=== PATIENT | female | born 1950 | race Caucasian/White ===

== ENCOUNTER 2018-08-21 18:13 | Inpatient (IN) ==
--- NOTE | 2018-08-21 18:26 | Emergency Department Note ---
Disposition Clinical Impression: Stroke Disposition: Admitted As Inpatient Condition: Fair General Adult HPI - General Chief complaint: ED Neuro Symptoms/Deficit Stated complaint: Poss stroke Time Seen by Provider: 08/21/18 18:14 Source: patient, family, EMS Limitations: no limitations - History of Present Illness Pain Scale: 0 - Related Data Home Medications Medication Instructions Recorded Confirmed Aspirin 325 mg PO DAILY 08/21/18 08/21/18 Allergies Allergy/AdvReac Type Severity Reaction Status Date / Time No Known Allergies Allergy Verified 08/21/18 20:28 Past Medical History - Past Medical History Medical history: Reports: other Psychiatric history: Reports: no psych history - Social History Smoking Status: Former smoker Smokeless Tobacco Status: No Alcohol use: Reports: none Drug use: Reports: none Physical Exam - General Limitations: no limitations General appearance: alert, in no apparent distress Course Vital Signs Temperature 98.9 F 08/21/18 18:17 Pulse Rate 73 08/21/18 18:17 Respiratory Rate 18 08/21/18 18:17 Blood Pressure 175/142 08/21/18 18:17 O2 Sat by Pulse Oximetry 97 08/21/18 18:17 Temperature 98.9 F 08/21/18 18:17 Pulse Rate 73 08/21/18 18:17 Respiratory Rate 18 08/21/18 18:17 Blood Pressure 175/142 08/21/18 18:17 O2 Sat by Pulse Oximetry 97 08/21/18 18:17 Oxygen Delivery Oxygen Delivery Room Air Medical Decision Making - Lab Data Result diagrams: 08/21/18 18:31 08/21/18 18:31 Lab Results 08/21/18 08/21/18 08/21/18 Range/Units 18:19 18:31 18:31 WBC 8.5 (4.3-11.1) K/mcL RBC 5.18 H (3.82-4.97) M/mcL Hgb 16.7 H (11.5-15.4) g/dL Hct 50.7 H (35.3-44.9) % MCV 97.9 (83.0-100.0) fL MCH 32.2 (28.0-33.3) pg MCHC 32.9 (31.6-35.5) g/dL RDW 12.9 (11.5-14.5) % Plt Count 196 (140-400) K/mcL MPV 9.8 (9.4-12.4) fL PT 11.1 (9.4-12.1) Seconds INR 1.0 APTT 28.1 (26.0-36.0) Seconds Sodium (136-145) mEq/L Potassium (3.5-5.1) mEq/L Chloride (98-107) mEq/L Carbon Dioxide (23-29) mEq/L BUN (8-23) mg/dL Creatinine (0.60-1.20) mg/dL Est GFR ( Amer) (> 60) Est GFR (Non-Af Amer) (> 60) BUN/Creatinine Ratio (6-26) Glucose (70-105) mg/dL POC Glucose 188 H (70-99) mg/dL Calculated Osmolality (280-300) Calcium (8.6-10.3) mg/dL Troponin I (< 0.04) ng/mL 08/21/18 Range/Units 18:31 WBC (4.3-11.1) K/mcL RBC (3.82-4.97) M/mcL Hgb (11.5-15.4) g/dL Hct (35.3-44.9) % MCV (83.0-100.0) fL MCH (28.0-33.3) pg MCHC (31.6-35.5) g/dL RDW (11.5-14.5) % Plt Count (140-400) K/mcL MPV (9.4-12.4) fL PT (9.4-12.1) Seconds INR APTT (26.0-36.0) Seconds Sodium 140 (136-145) mEq/L Potassium 3.2 L (3.5-5.1) mEq/L Chloride 102 (98-107) mEq/L Carbon Dioxide 27 (23-29) mEq/L BUN 14 (8-23) mg/dL Creatinine 0.67 (0.60-1.20) mg/dL Est GFR ( Amer) > 60 (> 60) Est GFR (Non-Af Amer) > 60 (> 60) BUN/Creatinine Ratio 21 (6-26) Glucose 192 H (70-105) mg/dL POC Glucose (70-99) mg/dL Calculated Osmolality 296 (280-300) Calcium 9.2 (8.6-10.3) mg/dL Troponin I 0.03 (< 0.04) ng/mL Critical Care Time Critical Care Time: Yes Total Critical Care Time: 35 Attestation: Critical care performed: Time is exclusive of separately billable procedures. Time includes: direct patient care, patient reassessment, coordination of patient care, interpretation of data (laboratory data, radiology data, and respiratory data), review of patient's medical records, medical consultation and documentation of patient care. Procedures included in critical care time: Procedures excluded from critical care time: Attestation Statement - Attestation Attestation: I examined this patient and my medical decision-making was reviewed with the Resident Physician. I agree with the documented findings, disposition and treatment plan as described except to the extent set forth below. Patient presents to the ED with a chief complaint of left-sided weakness. Onset 3 days ago. Weakness in her left leg. She is following. Left arm weakness as well. Left facial droop. On examination her left leg just the bed. She has a sensory discrepancy. Left arm drifts as well. Obvious droop of the left side of the mouth. Plan. Patient appears of the stroke. Onset 3 days ago. Stroke workup and admission. CT does not show anything acute. She is admitted for further stroke workup. Patient does not meet TPA criteria secondary to her symptoms starting over [address] 08/21/18 18:22 IMPRESSION: Atrophy and moderate small vessel ischemic disease. If there is strong clinical concern for acute on chronic ischemia, consider MRKarri Yadav/ / Dick Kearns MD / Dick Kearns MD Interpreting Provider: Dick Kearns MD
--- NOTE | 2018-08-21 18:27 | Emergency Department Note ---
Disposition Clinical Impression: Stroke Qualifiers: CVA mechanism: unspecified Qualified Code(s): I63.9 - Cerebral infarction, unspecified Disposition: Admitted As Inpatient Condition: Fair Time of Disposition: 20:25 General Adult HPI - General Chief complaint: ED Neuro Symptoms/Deficit Stated complaint: Poss stroke Time Seen by Provider: 08/21/18 18:14 Source: patient, family, EMS Mode of arrival: EMS Limitations: physical limitation Nursing Notes Reviewed: Yes Vital Signs Reviewed: Yes - History of Present Illness HPI Narrative: 68-year-old female presenting to the emergency department chief complaint left sided weakness. Patient states approximately 3 days ago she started having trouble walking on her left leg. She states it felt weak and heavy. She also states that she has had sensation abnormalities in left upper extremity and left lower extremity. She also noticed a left facial droop. She was concerned she was having a stroke but did not want to be evaluated. She keeps having falls at home and therefore her believed it was time to get evaluated by EMS. Patient denies any history of stroke. Does not use any anticoagulation. She does take aspirin at home. Pain Scale: 0 - Related Data Allergies Allergy/AdvReac Type Severity Reaction Status Date / Time No Known Allergies Allergy Verified 08/21/18 20:28 All systems ED: reviewed and negative except as stated. Cardiovascular: Denies: chest pain Respiratory: Denies: dyspnea Gastrointestinal: Denies: abdominal pain Past Medical History - Past Medical History Attestation: Yes The following information was validated with the patient. Source: patient Medical history: Reports: other Psychiatric history: Reports: no psych history - Social History Smoking Status: Former smoker Smokeless Tobacco Status: No Alcohol use: Reports: none Drug use: Reports: none Physical Exam - General Limitations: no limitations General appearance: alert, in no apparent distress - Head Head exam: atraumatic, normocephalic, normal inspection - Eye Eye exam: Absent: scleral icterus - ENT ENT exam: mucous membranes moist - Neck Neck exam: Present: full ROM - Chest Chest inspection: Present: symmetric chest wall rise - Respiratory Respiratory exam: Present: normal lung sounds bilaterally. Absent: respiratory distress, wheezes - Cardiovascular Cardiovascular exam: Present: regular rate, normal rhythm, normal heart sounds - Abdominal Exam Abdominal exam: Present: soft, Non-Tender. Absent: distention, guarding, rebound - Extremities Exam Extremities exam: Present: normal inspection - Neurological Exam Neurological exam: Present: alert, oriented X3, other (Please refer to NIH stroke scale for further neurological examination) - Psychiatric Psychiatric exam: Present: normal affect - Skin Skin exam: Present: warm Course Course Narrative: 68-year-old female presenting to the emergency department chief complaint left- sided weakness. In the room she is alert and oriented 3 and hemodynamically stable. Physical exam is significant for what looks like a stroke. Patient has left upper and lower extremity weakness with sensation abnormalities. NIH score 8. Patient has had symptoms for 3 days therefore is out of the window for TPA or other intervention at this time. We will perform basic laboratory analysis along with CT of the head. Disposition most likely admission versus transfer. Pending further evaluation. Patient agrees with this plan. - Reevaluation(s) Reevaluation #1: Patient's laboratory analysis shows hypokalemia at 3.2. CT does not show any acute intracranial hemorrhage. At this time will plan to admit the patient for stroke workup. Patient remains alert and oriented 3 and hemodynamically stable. Patient agrees with this plan. I spoke with the hospitalist destination specialist Dr. Wheatley who agrees to accept the patient at this time. Vital Signs Temperature 98.9 F 08/21/18 18:17 Pulse Rate 73 08/21/18 18:17 Respiratory Rate 18 08/21/18 18:17 Blood Pressure 175/142 08/21/18 18:17 O2 Sat by Pulse Oximetry 97 08/21/18 18:17 Temperature 98.9 F 08/21/18 18:17 Pulse Rate 73 08/21/18 18:17 Respiratory Rate 18 08/21/18 18:17 Blood Pressure 175/142 08/21/18 18:17 O2 Sat by Pulse Oximetry 97 08/21/18 18:17 Oxygen Delivery Oxygen Delivery Room Air Medical Decision Making - Lab Data Result diagrams: 08/21/18 18:31 08/21/18 18:31 Lab Results 08/21/18 08/21/18 08/21/18 Range/Units 18:19 18:31 18:31 WBC 8.5 (4.3-11.1) K/mcL RBC 5.18 H (3.82-4.97) M/mcL Hgb 16.7 H (11.5-15.4) g/dL Hct 50.7 H (35.3-44.9) % MCV 97.9 (83.0-100.0) fL MCH 32.2 (28.0-33.3) pg MCHC 32.9 (31.6-35.5) g/dL RDW 12.9 (11.5-14.5) % Plt Count 196 (140-400) K/mcL MPV 9.8 (9.4-12.4) fL PT 11.1 (9.4-12.1) Seconds INR 1.0 APTT 28.1 (26.0-36.0) Seconds Sodium (136-145) mEq/L Potassium (3.5-5.1) mEq/L Chloride (98-107) mEq/L Carbon Dioxide (23-29) mEq/L BUN (8-23) mg/dL Creatinine (0.60-1.20) mg/dL Est GFR ( Amer) (> 60) Est GFR (Non-Af Amer) (> 60) BUN/Creatinine Ratio (6-26) Glucose (70-105) mg/dL POC Glucose 188 H (70-99) mg/dL Calculated Osmolality (280-300) Calcium (8.6-10.3) mg/dL Troponin I (< 0.04) ng/mL 08/21/18 Range/Units 18:31 WBC (4.3-11.1) K/mcL RBC (3.82-4.97) M/mcL Hgb (11.5-15.4) g/dL Hct (35.3-44.9) % MCV (83.0-100.0) fL MCH (28.0-33.3) pg MCHC (31.6-35.5) g/dL RDW (11.5-14.5) % Plt Count (140-400) K/mcL MPV (9.4-12.4) fL PT (9.4-12.1) Seconds INR APTT (26.0-36.0) Seconds Sodium 140 (136-145) mEq/L Potassium 3.2 L (3.5-5.1) mEq/L Chloride 102 (98-107) mEq/L Carbon Dioxide 27 (23-29) mEq/L BUN 14 (8-23) mg/dL Creatinine 0.67 (0.60-1.20) mg/dL Est GFR ( Amer) > 60 (> 60) Est GFR (Non-Af Amer) > 60 (> 60) BUN/Creatinine Ratio 21 (6-26) Glucose 192 H (70-105) mg/dL POC Glucose (70-99) mg/dL Calculated Osmolality 296 (280-300) Calcium 9.2 (8.6-10.3) mg/dL Troponin I 0.03 (< 0.04) ng/mL - EKG Data EKG #1 EKG attestation: Yes I reviewed and interpreted this EKG. EKG results narrative: Atrial fibrillation. PVCs noted. 79 bpm. QRS 112, QTC 454. No sign of acute ST segment elevation or ischemia. NIH Stroke Scale - Level of Consciousness LOC: Alert - LOC Questions LOC Questions: Answers both correctly - LOC Commands LOC Commands: Performs both correctly - Best Gaze Best Gaze: Normal - Visual Visual: Partial hemianopia - Facial Palsy Facial Palsy: Partial, total, or near-total paralysis of lower face - Motor Arms Motor Arm-Left: Drift, does NOT hit bed Motor Arm-Right: No drift for 10 seconds - Motor Legs Motor Leg-Left: Some effort against gravity, limb drifts to bed Motor Leg-Right: No drift for 5 seconds - Limb Ataxia Limb Ataxia: Present in ONE limb - Sensory Sensory: Mild to moderate loss, "not as sharp" - Best Language Best Language: No aphasia - Dysarthria Dysarthria: Normal - Extinction and Inattention Extinction and Inattention: Normal - NIHSS Total Score NIHSS Total Score: 8
[2018-08-21 18:50] LABS: Hematocrit 50.7 % (35.3-44.9); Hemoglobin 16.7 g/dL (11.5-15.4); Mean Corpuscular HGB Conc 32.9 g/dL (31.6-35.5); Mean Corpuscular Hemoglobin 32.2 pg (28.0-33.3); Mean Corpuscular Volume 97.9 fL (83.0-100.0); Mean Platelet Volume 9.8 fL (9.4-12.4); Platelet Count 196 K/mcL (140-400); Red Blood Count 5.18 M/mcL (3.82-4.97); Red Cell Distribution Width 12.9 % (11.5-14.5)
[2018-08-21 19:10] LABS: Prothrombin Time 11.1 Seconds (9.4-12.1)
[2018-08-21 19:12] LABS: BUN/Creatinine Ratio 21 (6-26); Blood Urea Nitrogen 14 mg/dL (8-23); Calcium 9.2 mg/dL (8.6-10.3); Carbon Dioxide 27 mEq/L (23-29); Chloride 102 mEq/L (98-107); Glucose 192 mg/dL (70-105); Osmolality,Calculated 296 (280-300); Potassium 3.2 mEq/L (3.5-5.1); Sodium 140 mEq/L (136-145); Troponin I 0.03 ng/mL (< 0.04); eGFR For Non-African Americans > 60 (> 60)
[2018-08-21 19:13] LABS: Activated Partial Thrombo Time 28.1 Seconds (26.0-36.0)
[2018-08-21] MEDS ORDERED: Aspirin 325 MG TABLET PO ONE (20:26)
[2018-08-21] MEDS ORDERED: Naloxone 0.4 MG/ML INJ IVP PRN (23:42)
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
[2018-08-22] MEDS ORDERED: *HR* Labetalol 20 MG/4 ML SYRINGE IVP ONE (04:04)
[2018-08-22] MEDS ORDERED: *HR* Heparin 5,000 UNIT/ML VIAL IVP PRN ×2 (04:32)
[2018-08-22] MEDS ORDERED: *HR* Heparin 5,000 UNIT/ML VIAL IVP ONE (04:32)
[2018-08-22] MEDS ORDERED: Heparin 25,000 UNIT/250 ML D5W 25,000 UNIT/250 ML IV.SOLN IVC SCH (04:45)
[2018-08-22 05:12] LABS: Basophils # 0.1 K/mcL (0.0-0.2); Basophils % 0.9 %; Eosinophils # 0.1 K/mcL (0.0-0.6); Eosinophils % 1.7 %; Hematocrit 50.2 % (35.3-44.9); Hemoglobin 16.6 g/dL (11.5-15.4); Immature Granulocytes % 0.1 % (0-4); Lymphocytes # 0.9 K/mcL (0.6-4.6); Lymphocytes % 12.4 %; Mean Corpuscular HGB Conc 33.1 g/dL (31.6-35.5); Mean Corpuscular Hemoglobin 32.3 pg (28.0-33.3); Mean Corpuscular Volume 97.7 fL (83.0-100.0); Monocytes # 0.9 K/mcL (0.0-1.3); Monocytes % 12.7 %; Platelet Count 180 K/mcL (140-400); Red Blood Count 5.14 M/mcL (3.82-4.97); Segmented Neutrophils % 72.2 %
[2018-08-22 05:19] LABS: Heparin anti-factor XA UFH 0.04 IU/mL (0.30-0.70); Prothrombin Time 10.8 Seconds (9.4-12.1)
[2018-08-22 05:33] LABS: Alanine Aminotransferase 22 Units/L (7-52); Albumin 3.9 g/dL (3.5-5.7); Albumin/Globulin Ratio 1.4 (1.1-2.2); Alkaline Phosphatase 54 Units/L (34-104); Aspartate Amino Transferase 27 Units/L (13-39); BUN/Creatinine Ratio 21 (6-26); Bilirubin,Total 2.3 mg/dL (0.3-1.0); Blood Urea Nitrogen 14 mg/dL (8-23); Calcium 9.3 mg/dL (8.6-10.3); Carbon Dioxide 30 mEq/L (23-29); Chloride 100 mEq/L (98-107); Chol/HDL Ratio 2.7 (0-4.9); Cholesterol 169 mg/dL (< 200); Globulin 2.8 g/dL (2.4-3.5); Glucose 101 mg/dL (70-105); HDL Cholesterol 63 mg/dL (40-59); LDL Cholesterol,Calculated 92 mg/dL (0-99); Osmolality,Calculated 295 (280-300); Potassium 2.9 mEq/L (3.5-5.1); Sodium 142 mEq/L (136-145); Total Protein 6.7 g/dL (6.4-8.9); Triglycerides 71 mg/dL (< 150); eGFR For Non-African Americans > 60 (> 60)
[2018-08-22 10:17] LABS: Estimated Average Glucose 114 mg/dl; Hemoglobin A1C 5.6 %
--- NOTE | 2018-08-22 11:41 | Internal Med Progress Note ---
Hospitalist Progress Note - Encounter Date of Encounter: 08/22/18 Time of Encounter: 11:34 - Subjective Interval History: Patient is seen and examined in the room. Left-sided weakness and numbness remain the same. Patient has no headache, for seizure activity overnight. - Exam Vitals: Temp Pulse Resp BP Pulse Ox 98.4 F 62 13 179/87 97 08/22/18 08:37 08/22/18 08:37 08/22/18 08:37 08/22/18 08:37 08/22/18 08:37 Exam: General: Alert and oriented. Skin:Normal color, no rash, no lesions. HEENT:Pupils equal, round and reactive. Cardiovascular:Heart rhythm irregular, no rubs, murmurs or gallops. No JVD. Lungs:Breath sounds decreased, no wheezes or crackles. Abdomen:Soft, non-tender, no rigidity. Extremities:No deformity, no edema or tenderness, no joint swelling or clubbing. Neurological:Normal cognition. GCS 15. NIHSS 7 for left upper and lower extremity drift, limb ataxia, partial sensory loss, and partial facial paresis. Pulses:Carotid and radial pulses normal +2. Rest of the physical exam is non contributory. - Assessment and Plan (1) Stroke-like symptoms Current Visit: Yes Status: Acute Assessment and Plan: 08/21 Symptoms started Saturday. ER obtained Head CT showing atrophy and moderate small vessel ischemic disease, recommending MR if strong clinical concern for acute on chronic ischemia. MRI ordered. Echocardiogram ordered. Carotid dopplers ordered. PT, OT, ST consults ordered. Neuro checks. 08/22 MR of brain showed acute CVA in the MCA territory. Multiple chronic lacunar infarct involving caudae nucleus, internal capsule, and thalamus of right side also noted. Patient also was noted to have atrial fibrillation upon arrival to the ED. Patient denies history of atrial fibrillation. Echocardiogram showed preserved ejection fraction, no detectable PFO, no obvious valvular disease or intraventricular thrombosis. Undetermined etiology, patient likely also has underlying vascular arthrosclerosis given the moderate to severe chronic ischemic change revealed on MRI. Patient was on heparin drip for new onset of atrial fib, was started on Eliquis today with loading dose for 1 week. Continue home aspirin for now. Risk factor modification including blood pressure control, cholesterol, blood glucose control, and weight reduction. Neurology consult, appreciate help. (2) Atrial fibrillation Current Visit: Yes Status: Acute Assessment and Plan: 08/21 Patient denies any known history of atrial fibrillation. Rate currently controlled. Chadsvasc score of 4, heparin drip started. Continuous cardiac monitoring. 08/22 Rate controlled, adequately started. Echocardiogram reported a normal ejection fraction, no obvious valvular disease, no PFO, no intraventricular thrombosis. Patient currently not on any rate control agent, may start if indicated. (3) Hypokalemia Current Visit: Yes Status: Acute Assessment and Plan: Replacement ordered. Repeat labs ordered. (4) Hypertension Current Visit: Yes Status: Acute Assessment and Plan: Severe high blood pressure noted. Also has associated electrolytes abnormalities, raising the concern for secondary hypertension including Conn syndrome. We will start secondary hypertension workup, tests and imaging studies have already ordered. We will will aggressively manage the blood pressure after patient being evaluated by Neurology. DVT Prophylaxis: On Eliquis. - Time Spent with Patient Total time spent is greater than 50% in coordination of care (as documented) at patient's floor/unit and/or counseling patient: Greater than 35 minutes Plan of Care Discussed with: patient Internal Medicine: Result - Labs CBC & Chem 7: 08/22/18 04:47 08/22/18 04:47 Labs: Short CBC 08/21/18 08/22/18 Range/Units 18:31 04:47 WBC 8.5 6.9 (4.3-11.1) K/mcL Hgb 16.7 H 16.6 H (11.5-15.4) g/dL Hct 50.7 H 50.2 H (35.3-44.9) % Plt Count 196 180 (140-400) K/mcL Neutrophils # 5.0 (1.6-8.9) K/mcL BMP 08/21/18 08/22/18 18:31 04:47 Sodium 140 142 Potassium 3.2 L 2.9 L Chloride 102 100 Carbon Dioxide 27 30 H BUN 14 14 Creatinine 0.67 0.68 Glucose 192 H 101 Calcium 9.2 9.3 Cardiac Enzymes 08/21/18 Range/Units 18:31 Troponin I 0.03 (< 0.04) ng/mL Liver Function 08/22/18 Range/Units 04:47 Total Bilirubin 2.3 H (0.3-1.0) mg/dL AST 27 (13-39) Units/L ALT 22 (7-52) Units/L Alkaline Phosphatase 54 (34-104) Units/L Albumin 3.9 (3.5-5.7) g/dL - ABG Interpretation ABG results: PT/INR, D-dimer PT 10.8 Seconds (9.4-12.1) 08/22/18 04:47 - Impressions Impressions Head CT 08/21/18 18:22 IMPRESSION: Atrophy and moderate small vessel ischemic disease. If there is strong clinical concern for acute on chronic ischemia, consider MR. D/ / Dick Kearns MD / Dick Kearns MD Interpreting Provider: Dick Kearns MD Echocardiogram 08/22/18 01:05 Impressions: LVEF 55%. Mild concentric left ventricular hypertrophy. Indeterminate diastolic function. Mildly dilated left atrium. Normal right ventricular structure and function. Mild tricuspid regurgitation. No pulmonary hypertension. No evidence of PFO with agitated saline contrast. Left Ventricular Wall Motion: Rest Echo Findings All wall segments showed normal motion. Findings: Study Quality * Technically sub-optimal due to poor echocardiographic windows. ECG Findings * Atrial fibrillation. Left Ventricle * LVEF 55%. * Normal LV chamber size and systolic function. * Mild concentric left ventricular hypertrophy. * Indeterminate diastolic function. Right Ventricle * Normal right ventricular structure and function. Left Atrium * Mildly dilated left atrium. Right Atrium * Normal right atrial size. Interatrial Septum * No evidence of PFO with agitated saline contrast. Aortic Valve * Trileaflet aortic valve with normal function. * No aortic stenosis. * No aortic regurgitation. Mitral Valve * Normal mitral valve structure. * No mitral stenosis. * Trace mitral regurgitation. Tricuspid Valve * Normal tricuspid valve structure. * No tricuspid stenosis. * Mild tricuspid regurgitation. * Estimated RVSP is 25 mmHg. * Estimated RA pressure is 8 mmHg. * No pulmonary hypertension. Pulmonic Valve * Pulmonic valve is not well visualized. * No pulmonic stenosis. * No pulmonic regurgitation. Aorta * Normally sized aortic root. Pericardium * The pericardium appears normal. IVC * The IVC is dilated. * > 50% respiratory change Brain MRI 08/22/18 01:26 IMPRESSION: Patchy areas of acute infarctions in the right frontal and anterior right parietal lobes, in the right MCA territory. Small old lacunar infarcts in the right basal ganglia, right head of caudate nucleus, right thalamus and right frontal periventricular white matter. Mild parenchymal volume loss. Moderate to severe chronic microvascular disease. The results were reported to nurse Estefani at 10:19 a.m. on August 22, 2018. D/ / Mike Navas MD / Mike Navas MD Interpreting Provider: Mike Navas MD Consult Discharge Plan - Plan Referrals: Simon Jolley MD [Primary Care Provider] - (Web Requested) (2) Atrial fibrillation Qualifiers: Atrial fibrillation type: unspecified Qualified Code(s): I48.91 - Unspecified atrial fibrillation (4) Hypertension Qualifiers: Hypertension type: unspecified Qualified Code(s): I10 - Essential (primary) hypertension
[2018-08-22] MEDS ORDERED: Apixaban 5 MG TABLET PO SCH (11:45)
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
[2018-08-22] MEDS ORDERED: Isovue-370 500 ML BOTTLE IVP ONE (13:45)
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
[2018-08-22] MEDS: Metoprolol XL (24 HR) Succ 25 MG TAB.ER.24H PO SCH (16:23)
[2018-08-22] MEDS ORDERED: Warfarin perPT PO PRN (18:00)
[2018-08-22] MEDS ORDERED: *HR* Warfarin 5 MG TABLET PO ONE (18:00)
[2018-08-22 18:01] LABS: Thyroid Stimulating Hormone 1.55 mcIU/mL (0.340-5.600)
[2018-08-23 03:14] LABS: Hematocrit 48.8 % (35.3-44.9); Hemoglobin 16.4 g/dL (11.5-15.4); Mean Corpuscular HGB Conc 33.6 g/dL (31.6-35.5); Mean Corpuscular Hemoglobin 32.4 pg (28.0-33.3); Mean Corpuscular Volume 96.4 fL (83.0-100.0); Mean Platelet Volume 10.3 fL (9.4-12.4); Platelet Count 182 K/mcL (140-400); Red Blood Count 5.06 M/mcL (3.82-4.97)
[2018-08-23 03:22] LABS: INR 1.2
[2018-08-23 03:27] LABS: BUN/Creatinine Ratio 18 (6-26); Blood Urea Nitrogen 9 mg/dL (8-23); Calcium 8.8 mg/dL (8.6-10.3); Carbon Dioxide 29 mEq/L (23-29); Chloride 101 mEq/L (98-107); Glucose 100 mg/dL (70-105); Osmolality,Calculated 287 (280-300); Potassium 3.3 mEq/L (3.5-5.1); Sodium 139 mEq/L (136-145); eGFR For Non-African Americans > 60 (> 60)
[2018-08-23] MEDS: Metoprolol XL (24 HR) Succ 25 MG TAB.ER.24H PO SCH (09:31)
[2018-08-23] MEDS: Aspirin 81 MG TAB.CHEW PO SCH (09:31)
--- NOTE | 2018-08-23 11:19 | Internal Med Progress Note ---
Hospitalist Progress Note - Encounter Date of Encounter: 08/23/18 Time of Encounter: 11:18 - Subjective Interval History: Patient seen and examined in the room. Having right-sided weakness, numbness, and facial droop. - Exam Vitals: Temp Pulse Resp BP Pulse Ox 98.8 F 68 18 156/79 95 08/23/18 07:51 08/23/18 07:51 08/23/18 07:51 08/23/18 07:51 08/23/18 07:51 Exam: General: Alert and oriented. Skin:Normal color, no rash, no lesions. HEENT:Pupils equal, round and reactive. Cardiovascular:Heart rhythm irregular, no rubs, murmurs or gallops. No JVD. Lungs:Breath sounds decreased, no wheezes or crackles. Abdomen:Soft, non-tender, no rigidity. Extremities:No deformity, no edema or tenderness, no joint swelling or clubbing. Neurological:Normal cognition. GCS 15. NIHSS 7 for left upper and lower extremity drift, limb ataxia, partial sensory loss, and partial facial paresis. Pulses:Carotid and radial pulses normal +2. Rest of the physical exam is non contributory. - Assessment and Plan (1) Acute right MCA stroke Current Visit: Yes Status: Acute Assessment and Plan: 08/21 Symptoms started Saturday. ER obtained Head CT showing atrophy and moderate small vessel ischemic disease, recommending MR if strong clinical concern for acute on chronic ischemia. MRI ordered. Echocardiogram ordered. Carotid dopplers ordered. PT, OT, ST consults ordered. Neuro checks. 08/22 MR of brain showed acute CVA in the MCA territory. Multiple chronic lacunar infarct involving caudae nucleus, internal capsule, and thalamus of right side also noted. Patient also was noted to have atrial fibrillation upon arrival to the ED. Patient denies history of atrial fibrillation. Echocardiogram showed preserved ejection fraction, no detectable PFO, no obvious valvular disease or intraventricular thrombosis. Undetermined etiology, patient likely also has underlying vascular arthrosclerosis given the moderate to severe chronic ischemic change revealed on MRI. Patient was on heparin drip for new onset of atrial fib, was started on Eliquis today with loading dose for 1 week. Continue home aspirin for now. Risk factor modification including blood pressure control, cholesterol, blood glucose control, and weight reduction. Neurology consult, appreciate help. 08/23 Patient started on Coumadin per neurology recommendation. Patient passed bedside swallow evaluation and a speech therapist evaluation. PT/OT recommended inpatient rehabilitation, will DC to a rehabilitation next Saturday. Continue current treatment. (2) Atrial fibrillation Current Visit: Yes Status: Acute Assessment and Plan: 08/21 Patient denies any known history of atrial fibrillation. Rate currently controlled. Chadsvasc score of 4, heparin drip started. Continuous cardiac monitoring. 08/22 Rate controlled, adequately started. Echocardiogram reported a normal ejection fraction, no obvious valvular disease, no PFO, no intraventricular thrombosis. Patient currently not on any rate control agent, may start if indicated. 08/23 Cardiology consulted, metoprolol started, rate controlled, Coumadin started. (3) Hypokalemia Current Visit: Yes Status: Acute Assessment and Plan: Replacement ordered. Repeat labs ordered. (4) Hypertension Current Visit: Yes Status: Acute Assessment and Plan: Severe high blood pressure noted. Also has associated electrolytes abnormalities, raising the concern for secondary hypertension including Conn syndrome. We will start secondary hypertension workup, tests and imaging studies have already ordered. We will will aggressively manage the blood pressure. DVT Prophylaxis: Patient on Coumadin. - Time Spent with Patient Total time spent is greater than 50% in coordination of care (as documented) at patient's floor/unit and/or counseling patient: Greater than 35 minutes Plan of Care Discussed with: patient Internal Medicine: Result - Labs CBC & Chem 7: 08/23/18 02:27 08/23/18 02:27 Labs: Short CBC 08/23/18 Range/Units 02:27 WBC 7.1 (4.3-11.1) K/mcL Hgb 16.4 H (11.5-15.4) g/dL Hct 48.8 H (35.3-44.9) % Plt Count 182 (140-400) K/mcL BMP 08/23/18 02:27 Sodium 139 Potassium 3.3 L Chloride 101 Carbon Dioxide 29 BUN 9 Creatinine 0.50 L Glucose 100 Calcium 8.8 - ABG Interpretation ABG results: PT/INR, D-dimer PT 13.0 Seconds (9.4-12.1) H 08/23/18 02:27 - Impressions Impressions Head CT 08/21/18 18:22 IMPRESSION: Atrophy and moderate small vessel ischemic disease. If there is strong clinical concern for acute on chronic ischemia, consider MR. D/ / Dick Kearns MD / Dick Kearns MD Interpreting Provider: Dick Kearns MD Head CTA 08/22/18 13:45 IMPRESSION: Occluded M2 branch of the right MCA. No flow limiting stenosis or branch occlusion detected within the neck. The findings were sent to the Radiology Results Communication Center at 4:41 pm on 08/22/2018to be communicated to a licensed caregiver. D/ / Charly Bailey MD / Charly Bailey MD Interpreting Provider: Charly Bailey MD Neck CTA 08/22/18 13:45 IMPRESSION: Occluded M2 branch of the right MCA. No flow limiting stenosis or branch occlusion detected within the neck. The findings were sent to the Radiology Results Communication Center at 4:41 pm on 08/22/2018to be communicated to a licensed caregiver. D/ / Charly Bailey MD / Charly Bailey MD Interpreting Provider: Charly Bailey MD Consult Discharge Plan - Plan Referrals: Simon Jolley MD [Primary Care Provider] - (Web Requested) (2) Atrial fibrillation Qualifiers: Atrial fibrillation type: unspecified Qualified Code(s): I48.91 - Unspecified atrial fibrillation (4) Hypertension Qualifiers: Hypertension type: unspecified Qualified Code(s): I10 - Essential (primary) hypertension
--- NOTE | 2018-08-23 12:41 | Neurology Progress Note ---
Date of Encounter: 08/23/18 Time of Encounter: 12:39 Assessment and Plan (1) Stroke Current Visit: Yes Status: Acute pt seen to have right hemispheric stroke likely Thromboembolic or perhaps embolic sp with A fib, risk of hemorrhagic conversion is high, but at the same time in context of A fib high risk of another embolic event, with this recommend anticoagulation, may change to Low dose Coumadin instead of ELIQUIS, as it may be reversible plus dose can be managed according to INR, keep BP stable, no evidence of any carotid occlusion Considering significant deficit she would benefit from long-term rehabilitation. Favian Moore MD Qualifiers: CVA mechanism: unspecified Qualified Code(s): I63.9 - Cerebral infarction, unspecified Subjective Interval history: Patient is seen as an follow-up she continued to have a left-sided weakness with left facial drooping though stable. MRI confirmed right MCA infarct. Echocardiogram did not show any embolic source, neck vessels also negative for any critical stenosis there is a right M2 MCA occlusion noted likely the reason for her infarct. 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, hip flexors, tibialis Anterior, quadriceps, toe extension (EHL), plantarflexion Motor examination - left side: 2/5: deltoids, biceps, triceps, wrist flexion, wrist extension, 3/5: hip flexors, track moving machine operator, quadriceps, tibialis Anterior, toe extension (EHL), plantarflexion Sensation intact: Present: intact Reflexes: Biceps: 1+, Triceps: 1+, Brachioradialis: 1+, Patella: 0, Achilles: 0 Mental Status Examination: Present: awake, alert, oriented to person, oriented to place, oriented to time, follows commands appropriately, answers questions appropriately Cranial nerve examination: Present: PERRL, EOMI, visual shafer intact Cranial Nerve Exam: facial droop: Left, flattening of masolabic/folds: Left Ataxia: left upper extremity Results - Laboratory Findings CBC and BMP: 08/23/18 02:27 08/23/18 02:27 Abnormal lab findings: Abnormal lab results RBC 5.06 M/mcL (3.82-4.97) H 08/23/18 02:27 Hgb 16.4 g/dL (11.5-15.4) H 08/23/18 02:27 Hct 48.8 % (35.3-44.9) H 08/23/18 02:27 PT 13.0 Seconds (9.4-12.1) H 08/23/18 02:27 Heparin Anti-Xa, Unfract 0.04 IU/mL (0.30-0.70) L 08/22/18 11:37 Potassium 3.3 mEq/L (3.5-5.1) L 08/23/18 02:27 Carbon Dioxide 30 mEq/L (23-29) H 08/22/18 04:47 0.50 mg/dL (0.60-1.20) L 08/23/18 02:27 Glucose 192 mg/dL (70-105) H 08/21/18 18:31 POC Glucose 106 mg/dL (70-99) H 08/22/18 12:36 2.3 mg/dL (0.3-1.0) H 08/22/18 04:47 63 mg/dL (40-59) H 08/22/18 04:47 Consult Discharge Plan - Plan Referrals: Simon Jolley MD [Primary Care Provider] - (Web Requested)
[2018-08-23] MEDS: amLODIPine 5 MG TABLET PO SCH (17:03)
[2018-08-23] MEDS: hydroCHLOROthiazide 25 MG TABLET PO SCH (17:03)
[2018-08-23] MEDS ORDERED: *HR* Warfarin 5 MG TABLET PO ONE (18:00)
[2018-08-24] MEDS: hydroCHLOROthiazide 25 MG TABLET PO SCH (08:06)
[2018-08-24] MEDS: amLODIPine 5 MG TABLET PO SCH (08:06)
[2018-08-24] MEDS: Metoprolol XL (24 HR) Succ 25 MG TAB.ER.24H PO SCH (08:06)
[2018-08-24] MEDS: Aspirin 81 MG TAB.CHEW PO SCH (08:06)
--- NOTE | 2018-08-24 10:57 | Internal Med Progress Note ---
Hospitalist Progress Note - Encounter Date of Encounter: 08/24/18 Time of Encounter: 10:55 - Subjective Interval History: Patient seen and examined in the room. She denies any fever, chills, or night sweats. - Exam Vitals: Temp Pulse Resp BP Pulse Ox 97.8 F 79 17 192/85 94 08/24/18 07:59 08/24/18 07:59 08/24/18 07:59 08/24/18 07:59 08/24/18 07:59 Exam: General: Alert and oriented. Skin:Normal color, no rash, no lesions. HEENT:Pupils equal, round and reactive. Cardiovascular:Heart rhythm irregular, no rubs, murmurs or gallops. No JVD. Lungs:Breath sounds decreased, no wheezes or crackles. Abdomen:Soft, non-tender, no rigidity. Extremities:No deformity, no edema or tenderness, no joint swelling or clubbing. Neurological:Normal cognition. GCS 15. NIHSS 7 for left upper and lower extremity drift, limb ataxia, partial sensory loss, and partial facial paresis. Pulses:Carotid and radial pulses normal +2. Rest of the physical exam is non contributory. - Assessment and Plan (1) Acute right MCA stroke Current Visit: Yes Status: Acute Assessment and Plan: 08/21 Symptoms started Saturday. ER obtained Head CT showing atrophy and moderate small vessel ischemic disease, recommending MR if strong clinical concern for acute on chronic ischemia. MRI ordered. Echocardiogram ordered. Carotid dopplers ordered. PT, OT, ST consults ordered. Neuro checks. 08/22 MR of brain showed acute CVA in the MCA territory. Multiple chronic lacunar infa rct involving caudae nucleus, internal capsule, and thalamus of right side also noted. Patient also was noted to have atrial fibrillation upon arrival to the ED. Patient denies history of atrial fibrillation. Echocardiogram showed preserved ejection fraction, no detectable PFO, no obvious valvular disease or intraventricular thrombosis. Undetermined etiology, patient likely also has underlying vascular arthrosclerosis given the moderate to severe chronic ischemic change revealed on MRI. Patient was on heparin drip for new onset of atrial fib, was started on Eliquis today with loading dose for 1 week. Continue home aspirin for now. Risk factor modification including blood pressure control, cholesterol, blood glucose control, and weight reduction. Neurology consult, appreciate help. 08/23 Patient started on Coumadin per neurology recommendation. Patient passed bedside swallow evaluation and a speech therapist evaluation. PT/OT recommended inpatient rehabilitation, will DC to a rehabilitation next Saturday. Continue current treatment. 08/24 continue current treatment, continue to manage BP. INR sub-therapeutic. (2) Atrial fibrillation Current Visit: Yes Status: Acute Assessment and Plan: 08/21 Patient denies any known history of atrial fibrillation. Rate currently controlled. Chadsvasc score of 4, heparin drip started. Continuous cardiac monitoring. 08/22 Rate controlled, adequately started. Echocardiogram reported a normal ejection fraction, no obvious valvular disease, no PFO, no intraventricular thrombosis. Patient currently not on any rate control agent, may start if indicated. 08/23 Cardiology consulted, metoprolol started, rate controlled, Coumadin started. 08/24 INR sub-therapeutic, continue coumadin, rate controlled. (3) Hypokalemia Current Visit: Yes Status: Acute Assessment and Plan: Replacement ordered. Repeat labs ordered. (4) Hypertension Current Visit: Yes Status: Acute Assessment and Plan: Severe high blood pressure noted. Also has associated electrolytes abn ormalities, raising the concern for secondary hypertension including Conn syndrome. We will start secondary hypertension workup, renal artery doppler no stenosis. BP meds adjusted, metoprolol dose increased, lisinopril/HCTZ started. - Time Spent with Patient Total time spent is greater than 50% in coordination of care (as documented) at patient's floor/unit and/or counseling patient: Greater than 35 minutes Plan of Care Discussed with: patient Internal Medicine: Result - Labs CBC & Chem 7: 08/23/18 02:27 08/23/18 02:27 - ABG Interpretation ABG results: PT/INR, D-dimer PT 13.0 Seconds (9.4-12.1) H 08/23/18 02:27 Consult Discharge Plan - Plan Referrals: Simon Jolley MD [Primary Care Provider] - (Web Requested) (2) Atrial fibrillation Qualifiers: Atrial fibrillation type: unspecified Qualified Code(s): I48.91 - Unspecified atrial fibrillation (4) Hypertension Qualifiers: Hypertension type: unspecified Qualified Code(s): I10 - Essential (primary) hypertension
[2018-08-24 12:28] LABS: Mean Corpuscular HGB Conc 32.7 g/dL (31.6-35.5); Mean Corpuscular Volume 97.7 fL (83.0-100.0); Mean Platelet Volume 11.2 fL (9.4-12.4); Platelet Count 179 K/mcL (140-400); Red Blood Count 5.63 M/mcL (3.82-4.97)
[2018-08-24 12:36] LABS: INR 1.2; Prothrombin Time 13.5 Seconds (9.4-12.1)
[2018-08-24 12:42] LABS: BUN/Creatinine Ratio 17 (6-26); Blood Urea Nitrogen 10 mg/dL (8-23); Calcium 9.3 mg/dL (8.6-10.3); Carbon Dioxide 24 mEq/L (23-29); Chloride 98 mEq/L (98-107); Glucose 104 mg/dL (70-105); Osmolality,Calculated 281 (280-300); Potassium 3.4 mEq/L (3.5-5.1); Sodium 136 mEq/L (136-145); eGFR For Non-African Americans > 60 (> 60)
--- NOTE | 2018-08-24 12:45 | Neurology Progress Note ---
Date of Encounter: 08/24/18 Time of Encounter: 12:44 Assessment and Plan (1) Stroke Current Visit: Yes Status: Acute Overall patient is stable suggest continue on current treatment pt seen to have right hemispheric stroke likely Thromboembolic or perhaps embolic sp with A fib, risk of hemorrhagic conversion is high, but at the same time in context of A fib high risk of another embolic event, with this recommend anticoagulation, may change to Low dose Coumadin instead of ELIQUIS, as it may be reversible plus dose can be managed according to INR, keep BP stable, no evidence of any carotid occlusion Considering significant deficit she would benefit from long-term rehabilitation. Favian Moore MD Qualifiers: CVA mechanism: unspecified Qualified Code(s): I63.9 - Cerebral infarction, unspecified Subjective Interval history: Patient is seen as an follow-up , seems to be stable no new issues she continued to have a left-sided weakness with left facial drooping though stable. MRI confirmed right MCA infarct. Echocardiogram did not show any embolic source, neck vessels also negative for any critical stenosis there is a right M2 MCA occlusion noted likely the reason for her infarct. 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, quadriceps, tibialis Anterior, toe extension (EHL), plantarflexion Sensation intact: Present: intact Mental Status Examination: Present: awake, alert, oriented to person, oriented to place, oriented to time, follows commands appropriately, answers questions appropriately Cranial nerve examination: Present: PERRL, EOMI, visual shafer intact Cranial Nerve Exam: facial droop: Left, flattening of masolabic/folds: Left Results - Laboratory Findings CBC and BMP: 08/24/18 10:47 08/24/18 10:47 Abnormal lab findings: Abnormal lab results RBC 5.63 M/mcL (3.82-4.97) H 08/24/18 10:47 Hgb 18.0 g/dL (11.5-15.4) H D 08/24/18 10:47 Hct 55.0 % (35.3-44.9) H 08/24/18 10:47 PT 13.5 Seconds (9.4-12.1) H 08/24/18 10:47 Heparin Anti-Xa, Unfract 0.04 IU/mL (0.30-0.70) L 08/22/18 11:37 Potassium 3.4 mEq/L (3.5-5.1) L 08/24/18 10:47 Carbon Dioxide 30 mEq/L (23-29) H 08/22/18 04:47 0.59 mg/dL (0.60-1.20) L 08/24/18 10:47 Glucose 192 mg/dL (70-105) H 08/21/18 18:31 POC Glucose 106 mg/dL (70-99) H 08/22/18 12:36 2.3 mg/dL (0.3-1.0) H 08/22/18 04:47 63 mg/dL (40-59) H 08/22/18 04:47 Consult Discharge Plan - Plan Referrals: Simon Jolley MD [Primary Care Provider] - (Web Requested)
[2018-08-24] MEDS: 0.9 % Sodium Chloride w KCl 20 MEQ/1,000 ML MLS IVC SCH (16:38)
[2018-08-24] MEDS ORDERED: *HR* Warfarin 5 MG TABLET PO ONE (18:00)
[2018-08-25 06:25] LABS: INR 1.9; Prothrombin Time 21.5 Seconds (9.4-12.1)
[2018-08-25] MEDS: 0.9 % Sodium Chloride w KCl 20 MEQ/1,000 ML MLS IVC SCH ×2 (08:48→11:40)
[2018-08-25] MEDS: Aspirin 81 MG TAB.CHEW PO SCH (08:51)
[2018-08-25] MEDS: Metoprolol XL (24 HR) Succ 25 MG TAB.ER.24H PO SCH (08:51)
--- NOTE | 2018-08-25 09:39 | Electrocardiograph Report ---
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
[2018-08-25 11:45] LABS: BUN/Creatinine Ratio 22 (6-26); Blood Urea Nitrogen 13 mg/dL (8-23); Calcium 8.6 mg/dL (8.6-10.3); Carbon Dioxide 26 mEq/L (23-29); Chloride 98 mEq/L (98-107); Glucose 110 mg/dL (70-105); Osmolality,Calculated 281 (280-300); Potassium 3.5 mEq/L (3.5-5.1); Sodium 135 mEq/L (136-145); eGFR For Non-African Americans > 60 (> 60)
--- NOTE | 2018-08-25 13:10 | Discharge Summary ---
- NOTES TO OUTPATIENT PROVIDER Notes to Outpatient Provider: f/u with neurology within a month. f/u with PCP within 2 weeks. Orders not resulted at time of discharge: Pending orders 08/22/18 10:26 Cortisol Fr,Ur Random or 24hr Routine 08/24/18 15:39 Urinalysis Reflex Cult & Micro [URIN] Stat 08/26/18 04:00 PT/INR [Prothrombin Time INR] [COAG] AM 0400 08/27/18 04:00 PT/INR [Prothrombin Time INR] [COAG] AM 0400 08/28/18 04:00 PT/INR [Prothrombin Time INR] [COAG] AM 040 Date of Encounter: 08/25/18 Time of Encounter: 13:06 - Discharge Diagnosis (1) Acute right MCA stroke Priority: Primary Status: Acute (2) Atrial fibrillation Priority: Primary Status: Acute Qualifiers: Atrial fibrillation type: unspecified Qualified Code(s): I48.91 - Unspecified atrial fibrillation (3) Hypokalemia Priority: Primary Status: Resolved (4) Hypertension Priority: Primary Status: Acute Qualifiers: Hypertension type: unspecified Qualified Code(s): I10 - Essential (primary) hypertension Hospital course: Ms. Huggins is a 68 year old female with no significant past medical history who presents for complaints of left sided weakness, numbness, and facial droop. States symptoms have not improved and are affecting her ability to ambulate. States she did not seek evaluation sooner because she thought her symptoms would resolve, however they have persisted so she decided to seek evaluation. Due to symptom onset three days ago, patient is outside of the window for TPA or other intervention. Denies ever having any similar symptoms in the past. Denies any history of stroke or TIA. Denies any recent illness. Denies any headache, vision changes, chest pain, shortness of breath, cough, nausea, bowel or bladder changes. ER rated NIHSS at an 8. ER obtained CT of the head which showed atrophy and moderate small vessel ischemic disease. EKG showed atrial fibrillation with PVC's noted and no sign of acute ST segment elevation or ischemia. Received full dose aspirin while in ER. MRI of brain showed right-sided CVA in MCA territory involving both frontal and the parietal lobe. CTA of the head showed occlusion of M2 branches of right MCA. Neurology was consulted, patient was started on Coumadin. Echocardiogram was performed which showed preserved LV ejection fraction, insignificant valvular disease, and no PFO identified. Cardiology was consulted, patient was started on metoprolol, her heart rate was controlled. Bilateral carotid Doppler has insignificant stenosis. CT/MRI of head also showed chronic ischemic change, patient was started on statins. Her blood pressure was notable severely elevated, workup for secondary hypertension who was negative including negative renal artery Doppler, normal TSH/free T4, and a normal ranging and several aldosterone. He was started on lisinopril and HCTZ, her blood pressure has been controlled. She was placed on mechanical soft with nectar thick liquid diet to prevent risk of aspiration. PT/OT recommended inpatient rehabilitation, patient will be discharged to inpatient some bed today. She will follow-up with PCP and neurology as scheduled. Discharge discussed with: patient Time spent discussing smoking cessation with patient: more than 10 minutes - Time Spent with Patient Total time spent providing and/or coordinating discharge services: Time spent: Greater than 30 minutes - Discharge Medications Prescriptions: New Warfarin [Coumadin] 2.5 mg PO 1800 #20 tablet Atorvastatin [Lipitor] 40 mg PO HS #30 tablet Lisinopril-HCTZ 10-12.5 [Prinzide 10-12.5] 1 each PO DAILY #30 tablet Metoprolol XL (24 HR) Succ [Toprol Xl] 25 mg PO DAILY #30 tab.er.24h Continued Aspirin 81 mg PO DAILY Home Medications: Aspirin 81 mg PO DAILY 08/21/18 [History] Atorvastatin [Lipitor] 40 mg PO HS #30 tablet 08/25/18 [Rx] Lisinopril-HCTZ 10-12.5 [Prinzide 10-12.5] 1 each PO DAILY #30 tablet 08/25/18 [Rx] Metoprolol XL (24 HR) Succ [Toprol Xl] 25 mg PO DAILY #30 tab.er.24h 08/25/18 [Rx] Warfarin [Coumadin] 2.5 mg PO 1800 #20 tablet 08/25/18 [Rx] Allergies/Adverse Reactions: Allergy/AdvReac Type Severity Reaction Status Date / Time No Known Allergies Allergy Verified 08/21/18 20:28 Date of admission: 08/22/18 12:52 Primary care physician: Simon Jolley MD Consults: 08/21/18 23:22 Consult to Occupational Therapy [CONS] Routine Comment: Evaluate, develop and implement POC Reason for Consult: Stroke like symptoms with left sided numbness since Saturday. Please evaluate and treat. Does patient have active BEDREST order?: No Is patient medically & hemodynamically stable?: Yes Consult to Physical Therapy [CONS] Routine Comment: Evaluate, develop and implement POC Reason for Consult: Stroke like symptoms with left sided numbness since Saturday. Please evaluate and treat. Does patient have active BEDREST order?: No Is patient medically & hemodynamically stable?: Yes Consult to Speech Therapy [CONS] Routine Comment: Evaluate, develop and implement POC Reason for Consult: Stroke like symptoms with left sided weakness including face since Saturday. Please evaluate and treat. Call Completed: No 08/22/18 10:21 Consult to Neurology [CONS] Routine Consulting Provider: Neu[facility] Reason for Consult: acute CVA Call Completed: Yes 08/22/18 14:13 Consult to Cardiology [CONS] Routine Comment: Consulting Provider: [facility] Reason for Consult: new onset of afib Call Completed: Yes 08/25/18 09:23 Consult to Soloist Dancer [CONS] Routine Reason for SW Consult: PT/OT RECOMMENDS INPATIENT SWING Anticipated date of discharge: 08/25/18 - Constitutional Vitals: Temp Pulse Resp BP Pulse Ox 97.7 F 66 16 154/79 94 08/25/18 11:17 08/25/18 11:17 08/25/18 11:17 08/25/18 11:17 08/25/18 11:17 General appearance: Present: A&O X 3 Exam: General: Alert and oriented. Skin:Normal color, no rash, no lesions. HEENT:Pupils equal, round and reactive. Cardiovascular:Heart rhythm irregular, no rubs, murmurs or gallops. No JVD. Lungs:Breath sounds decreased, no wheezes or crackles. Abdomen:Soft, non-tender, no rigidity. Extremities:No deformity, no edema or tenderness, no joint swelling or clubbing. Neurological:Normal cognition. GCS 15. NIHSS 7 for left upper and lower extremity drift, limb ataxia, partial sensory loss, and partial facial paresis. Pulses:Carotid and radial pulses normal +2. Rest of the physical exam is non contributory. - Patient Status Disposition: Transfer Hospital Swing Bed Condition: Fair Functional capacity at discharge: wheelchair bound Overall status at discharge: patient is not back to baseline - Discharge Instructions Follow Up With: Simon Jolley MD [Primary Care Provider] - (Web Requested) - Diet and Activity Activity: as per physical therapy Diet: low fat, low cholesterol (mechanical soft and nectar thick.), low salt diet
--- NOTE | 2018-08-25 13:18 | Neurology Progress Note ---
<Cr Lucia J - Last Filed: 08/25/18 13:12> Date of Encounter: 08/25/18 Time of Encounter: 13:12 Assessment and Plan (1) Stroke Current Visit: Yes Status: Acute Clinically, she remains stable on current treatment with Warfarin. No new d eficits on neuro exam. CVA is most likely a thromboembolic event but suspicion for emolic also; patient with new a-fib. Given extent of infarct there is a risk for hemorhagic conversion. However, in the setting of a-fib she is at risk for embolic stroke. Recommend continuing coumadin with close f/u. She should d/c to inpatient rehab; she will most likely need extensive rehab given significant left sided deficits. INR remains subtherapeuric at 1.9. Subjective Principal diagnosis: Acute CVA Interval history: Seen and examined at the bedside today for f/u for acute CVA. MRI confirmed right MCA infarct. Echocardiogram did not show any embolic source, neck vessels also negative for any critical stenosis there is a right M2 MCA occlusion noted likely the reason for her infarct. Clinically she remains stable with any fur ther neurological deficits. She continues to have severe left sided weakness and left facial droop. INR subtherapeutic today at 1.9. Objective - Constitutional Vitals: Temp Pulse Resp BP Pulse Ox 97.7 F 66 16 154/79 94 08/25/18 11:17 08/25/18 11:17 08/25/18 11:17 08/25/18 11:17 08/25/18 11:17 Exam: Neurological Exam Motor examination - left side: 2/5: deltoids, biceps, triceps, wrist flexion, wrist extension, 2/5: hip flexors, manager trust, quadriceps, tibialis Anterior, toe extension (EHL), plantarflexion Sensation intact: Present: intact on right, sensation deficit on left arm and leg; decreased sensation Mental Status Examination: Present: awake, alert, oriented to person, oriented to place, oriented to time, follows commands appropriately, answers questions appropriately Cranial nerve examination: Present: PERRL, EOMI, visual shafer intact Cranial Nerve Exam: facial droop: Left, flattening of masolabic/folds: Left - Neurological Exam Motor examination - left side: 2/5: deltoids, biceps, triceps, wrist flexion, wrist extension, 3/5: hip flexors, manager trust, quadriceps, tibialis Anterior, toe extension (EHL), plantarflexion Sensation intact: Present: intact Mental Status Examination: Present: awake, alert, oriented to person, oriented to place, oriented to time, follows commands appropriately, answers questions appropriately Cranial nerve examination: Present: PERRL, EOMI, visual shafer intact Cranial Nerve Exam: facial droop: Left, flattening of masolabic/folds: Left Results - Laboratory Findings CBC and BMP: 08/24/18 10:47 08/25/18 10:49 Abnormal lab findings: Abnormal lab results RBC 5.63 M/mcL (3.82-4.97) H 08/24/18 10:47 Hgb 18.0 g/dL (11.5-15.4) H D 08/24/18 10:47 Hct 55.0 % (35.3-44.9) H 08/24/18 10:47 PT 21.5 Seconds (9.4-12.1) H D 08/25/18 05:32 Heparin Anti-Xa, Unfract 0.04 IU/mL (0.30-0.70) L 08/22/18 11:37 Sodium 135 mEq/L (136-145) L 08/25/18 10:49 Potassium 3.4 mEq/L (3.5-5.1) L 08/24/18 10:47 Carbon Dioxide 30 mEq/L (23-29) H 08/22/18 04:47 0.59 mg/dL (0.60-1.20) L 08/24/18 10:47 Glucose 110 mg/dL (70-105) H 08/25/18 10:49 POC Glucose 106 mg/dL (70-99) H 08/22/18 12:36 2.3 mg/dL (0.3-1.0) H 08/22/18 04:47 63 mg/dL (40-59) H 08/22/18 04:47 Consult Discharge Plan - Plan Instructions: Atrial Fibrillation (DC), Ischemic Stroke (DC) Referrals: Simon Jolley MD [Primary Care Provider] - (Web Requested) Favian Moore MD [Partnered Physician] - (The office will contact you to schedule an appointment. Thank you. ) Prescriptions: Warfarin [Coumadin] 2.5 mg PO 1800 #20 tablet Atorvastatin [Lipitor] 40 mg PO HS #30 tablet Lisinopril-HCTZ 10-12.5 [Prinzide 10-12.5] 1 each PO DAILY #30 tablet Metoprolol XL (24 HR) Succ [Toprol Xl] 25 mg PO DAILY #30 tab.er.24h <Favian Moore I - Last Filed: 08/25/18 16:09> Date of Encounter: 08/25/18 Assessment and Plan (1) Stroke Current Visit: Yes Status: Acute I have personally performed a face to face diagnostic evaluation, including HPI, EXAM, which is included in the Assesment and plan, which was discussed with Cr Lucia CNP, I agree with the above outlined documentation. Favian Moore MD. NeurologyI Qualifiers: CVA mechanism: unspecified Qualified Code(s): I63.9 - Cerebral infarction, unspecified Objective - Constitutional Vitals: Temp Pulse Resp BP Pulse Ox 97.9 F 79 14 184/103 96 08/25/18 15:19 08/25/18 15:19 08/25/18 15:19 08/25/18 15:19 08/25/18 15:19 Results - Laboratory Findings CBC and BMP: 08/24/18 10:47 08/25/18 10:49 Abnormal lab findings: Abnormal lab results RBC 5.63 M/mcL (3.82-4.97) H 08/24/18 10:47 Hgb 18.0 g/dL (11.5-15.4) H D 08/24/18 10:47 Hct 55.0 % (35.3-44.9) H 08/24/18 10:47 PT 21.5 Seconds (9.4-12.1) H D 08/25/18 05:32 Heparin Anti-Xa, Unfract 0.04 IU/mL (0.30-0.70) L 08/22/18 11:37 Sodium 135 mEq/L (136-145) L 08/25/18 10:49 Potassium 3.4 mEq/L (3.5-5.1) L 08/24/18 10:47 Carbon Dioxide 30 mEq/L (23-29) H 08/22/18 04:47 0.59 mg/dL (0.60-1.20) L 08/24/18 10:47 Glucose 110 mg/dL (70-105) H 08/25/18 10:49 POC Glucose 106 mg/dL (70-99) H 08/22/18 12:36 2.3 mg/dL (0.3-1.0) H 08/22/18 04:47 63 mg/dL (40-59) H 08/22/18 04:47
[2018-08-25 16:52] VITALS: BP 153/86
--- NOTE | 2018-08-25 17:47 | Physician Discharge Referral ---
[facility] Referral Info Provider in Charge after Transfer: Other Institutional Level of Care: Skilled - Diagnosis (1) Acute right MCA stroke Priority: Primary Status: Acute (2) Atrial fibrillation Priority: Primary Status: Acute (3) Hypokalemia Priority: Primary Status: Resolved (4) Hypertension Priority: Primary Status: Acute - Transfer Medications Prescriptions: Warfarin [Coumadin] 2.5 mg PO 1800 #20 tablet Atorvastatin [Lipitor] 40 mg PO HS #30 tablet Lisinopril-HCTZ 10-12.5 [Prinzide 10-12.5] 1 each PO DAILY #30 tablet Metoprolol XL (24 HR) Succ [Toprol Xl] 25 mg PO DAILY #30 tab.er.24h Home Medications: Aspirin 81 mg PO DAILY 08/21/18 [History] Atorvastatin [Lipitor] 40 mg PO HS #30 tablet 08/25/18 [Rx] Lisinopril-HCTZ 10-12.5 [Prinzide 10-12.5] 1 each PO DAILY #30 tablet 08/25/18 [Rx] Metoprolol XL (24 HR) Succ [Toprol Xl] 25 mg PO DAILY #30 tab.er.24h 08/25/18 [Rx] Warfarin [Coumadin] 2.5 mg PO 1800 #20 tablet 08/25/18 [Rx] Allergies/Adverse Reactions: Allergy/AdvReac Type Severity Reaction Status Date / Time No Known Allergies Allergy Verified 08/21/18 20:28 - Respiratory Orders Smoking Cessation: Smoking cessation has been advised. For more information, call the [place] Tobacco Quit Line at 1-001-YUWE-NOW. - Advance Directives Code Status: Full Code CERTIFICATION: I certify that the transfer of the above named patient to an Extended Care Facility is necessary for the continuing treatment of the diagnosis listed. The above information is true and accurate reflection of patient's current condition. Confidential - Redisclosure prohibited without a patient's written consent.
[2018-08-25] MEDS ORDERED: *HR* Warfarin 2.5 MG TABLET PO ONE (18:00)
== END 2018-08-25 18:36 | disposition other institution (70) | DRG 65 ==
LOC: 3BNU 18:13 → EMEROOARM 18:13 → 3BNU 21:01
PROVIDERS: ADMIT Family Medicine; ATTEND Family Medicine

== ENCOUNTER 2019-03-19 13:36 | Inpatient (IN) ==
[2019-03-19] MEDS: 0.9 % Sodium Chloride 1,000 ML IVC SCH (14:00)
[2019-03-19 14:08] LABS: Basophils % 0.4 %; Eosinophils # 0.4 K/mcL (0.0-0.6); Eosinophils % 4.7 %; Hematocrit 35.9 % (35.3-44.9); Immature Granulocytes % 0.2 % (0-4); Lymphocytes # 1.4 K/mcL (0.6-4.6); Lymphocytes % 16.6 %; Mean Corpuscular HGB Conc 33.4 g/dL (31.6-35.5); Mean Corpuscular Hemoglobin 29.6 pg (28.0-33.3); Mean Corpuscular Volume 88.6 fL (83.0-100.0); Mean Platelet Volume 10.7 fL (9.4-12.4); Monocytes # 0.6 K/mcL (0.0-1.3); Monocytes % 7.4 %; Neutrophils # 5.8 K/mcL (1.6-8.9); Platelet Count 270 K/mcL (140-400); Red Blood Count 4.05 M/mcL (3.82-4.97); Red Cell Distribution Width 12.7 % (11.5-14.5); Segmented Neutrophils % 70.7 %; White Blood Count 8.3 K/mcL (4.3-11.1)
[2019-03-19 14:10] LABS: INR 1.1; Prothrombin Time 12.3 Seconds (9.4-12.1)
[2019-03-19 14:12] LABS: Activated Partial Thrombo Time 29.7 Seconds (26.0-36.0)
[2019-03-19 14:41] LABS: Alanine Aminotransferase 11 Units/L (7-52); Albumin 3.8 g/dL (3.5-5.7); Albumin/Globulin Ratio 1.2 (1.1-2.2); Alkaline Phosphatase 70 Units/L (34-104); Aspartate Amino Transferase 12 Units/L (13-39); BUN/Creatinine Ratio 29 (6-26); Bilirubin,Total 0.9 mg/dL (0.3-1.0); Blood Urea Nitrogen 15 mg/dL (8-23); Calcium 9.5 mg/dL (8.6-10.3); Carbon Dioxide 35 mEq/L (23-29); Chloride 96 mEq/L (98-107); Globulin 3.1 g/dL (2.4-3.5); Glucose 120 mg/dL (70-105); Osmolality,Calculated 298 (280-300); Potassium 3.2 mEq/L (3.5-5.1); Sodium 143 mEq/L (136-145); Total Protein 6.9 g/dL (6.4-8.9); Troponin I 0.03 ng/mL (< 0.04); eGFR For African Americans > 60 (> 60); eGFR For Non-African Americans > 60 (> 60)
[2019-03-19] MEDS ORDERED: Ondansetron 4 MG/2 ML VIAL IVP PRN (16:54)
[2019-03-19] MEDS ORDERED: Naloxone 0.4 MG/ML INJ IVP PRN (17:06)
[2019-03-19] MEDS: *HR* Metoprolol 5 MG/5 ML VIAL IVP PRN (17:31)
[2019-03-19] MEDS: Pantoprazole 40 MG VIAL IVP SCH (17:31)
[2019-03-19 21:55] LABS: Hematocrit 33.2 % (35.3-44.9); Hemoglobin 11.2 g/dL (11.5-15.4)
[2019-03-20 04:41] LABS: Basophils % 0.5 %; Eosinophils # 0.6 K/mcL (0.0-0.6); Eosinophils % 6.8 %; Hemoglobin 10.5 g/dL (11.5-15.4); Immature Granulocytes % 0.3 % (0-4); Lymphocytes # 2.2 K/mcL (0.6-4.6); Mean Corpuscular HGB Conc 32.8 g/dL (31.6-35.5); Mean Corpuscular Hemoglobin 29.2 pg (28.0-33.3); Mean Corpuscular Volume 88.9 fL (83.0-100.0); Monocytes # 0.8 K/mcL (0.0-1.3); Monocytes % 9.1 %; Neutrophils # 5.1 K/mcL (1.6-8.9); Platelet Count 235 K/mcL (140-400); Red Cell Distribution Width 12.4 % (11.5-14.5); Segmented Neutrophils % 58.3 %; White Blood Count 8.7 K/mcL (4.3-11.1)
[2019-03-20 04:43] LABS: INR 1.2; Prothrombin Time 13.7 Seconds (9.4-12.1)
[2019-03-20 05:11] LABS: BUN/Creatinine Ratio 36 (6-26); Blood Urea Nitrogen 17 mg/dL (8-23); Calcium 9.2 mg/dL (8.6-10.3); Carbon Dioxide 32 mEq/L (23-29); Chloride 102 mEq/L (98-107); Glucose 88 mg/dL (70-105); Magnesium 1.9 mg/dL (1.6-2.6); Osmolality,Calculated 295 (280-300); Potassium 3.6 mEq/L (3.5-5.1); Sodium 142 mEq/L (136-145); eGFR For African Americans > 60 (> 60); eGFR For Non-African Americans > 60 (> 60)
[2019-03-20] MEDS: Pantoprazole 40 MG VIAL IVP SCH ×2 (05:27→17:58)
[2019-03-20] MEDS: 0.9 % Sodium Chloride 1,000 ML IVC SCH ×2 (11:38→23:48)
[2019-03-20] MEDS: *HR* Metoprolol 5 MG/5 ML VIAL IVP PRN (11:48)
[2019-03-20 14:12] LABS: Hematocrit 33.6 % (35.3-44.9); Hemoglobin 10.7 g/dL (11.5-15.4)
[2019-03-20] MEDS: *HR* LORazepam 2 MG/ML VIAL IVP SCH ×2 (16:12→23:22)
[2019-03-20 20:50] LABS: Hematocrit 33.3 % (35.3-44.9); Hemoglobin 11.3 g/dL (11.5-15.4)
[2019-03-21] MEDS: *HR* Metoprolol 5 MG/5 ML VIAL IVP PRN (00:56)
[2019-03-21] MEDS: Pantoprazole 40 MG VIAL IVP SCH ×2 (05:22→17:31)
[2019-03-21] MEDS: 0.9 % Sodium Chloride 1,000 ML IVC SCH (05:24)
[2019-03-21 05:52] LABS: Basophils % 0.4 %; Eosinophils # 0.5 K/mcL (0.0-0.6); Eosinophils % 4.2 %; Hematocrit 32.5 % (35.3-44.9); Hemoglobin 10.4 g/dL (11.5-15.4); Immature Granulocytes % 0.2 % (0-4); Lymphocytes # 1.6 K/mcL (0.6-4.6); Lymphocytes % 14.9 %; Mean Corpuscular Hemoglobin 29.9 pg (28.0-33.3); Mean Corpuscular Volume 93.4 fL (83.0-100.0); Mean Platelet Volume 11.4 fL (9.4-12.4); Monocytes # 0.8 K/mcL (0.0-1.3); Monocytes % 7.4 %; Neutrophils # 7.9 K/mcL (1.6-8.9); Platelet Count 217 K/mcL (140-400); Red Blood Count 3.48 M/mcL (3.82-4.97); Red Cell Distribution Width 12.4 % (11.5-14.5); Segmented Neutrophils % 72.9 %; White Blood Count 10.8 K/mcL (4.3-11.1)
[2019-03-21 06:13] LABS: BUN/Creatinine Ratio 38 (6-26); Blood Urea Nitrogen 15 mg/dL (8-23); Calcium 8.7 mg/dL (8.6-10.3); Carbon Dioxide 27 mEq/L (23-29); Chloride 103 mEq/L (98-107); Glucose 71 mg/dL (70-105); Magnesium 1.8 mg/dL (1.6-2.6); Osmolality,Calculated 293 (280-300); Potassium 3.2 mEq/L (3.5-5.1); Sodium 142 mEq/L (136-145); eGFR For African Americans > 60 (> 60); eGFR For Non-African Americans > 60 (> 60)
[2019-03-21] MEDS: *HR* LORazepam 2 MG/ML VIAL IVP SCH (09:06)
[2019-03-21] MEDS: *HR* Metoprolol 5 MG/5 ML VIAL IVP SCH ×2 (09:49→21:24)
[2019-03-21] MEDS ORDERED: *HR* LORazepam 2 MG/ML VIAL IVP SCH (21:00)
[2019-03-22 02:03] LABS: Basophils % 0.4 %; Eosinophils # 0.5 K/mcL (0.0-0.6); Eosinophils % 4.8 %; Hematocrit 32.3 % (35.3-44.9); Immature Granulocytes % 0.4 % (0-4); Lymphocytes # 2.2 K/mcL (0.6-4.6); Mean Corpuscular HGB Conc 34.1 g/dL (31.6-35.5); Mean Corpuscular Hemoglobin 29.9 pg (28.0-33.3); Mean Corpuscular Volume 87.8 fL (83.0-100.0); Mean Platelet Volume 10.6 fL (9.4-12.4); Monocytes # 0.7 K/mcL (0.0-1.3); Monocytes % 6.4 %; Neutrophils # 7.9 K/mcL (1.6-8.9); Platelet Count 245 K/mcL (140-400); Red Blood Count 3.68 M/mcL (3.82-4.97); Red Cell Distribution Width 12.4 % (11.5-14.5); White Blood Count 11.4 K/mcL (4.3-11.1)
[2019-03-22 02:22] LABS: BUN/Creatinine Ratio 29 (6-26); Blood Urea Nitrogen 11 mg/dL (8-23); Calcium 8.8 mg/dL (8.6-10.3); Carbon Dioxide 26 mEq/L (23-29); Chloride 100 mEq/L (98-107); Glucose 83 mg/dL (70-105); Magnesium 1.9 mg/dL (1.6-2.6); Osmolality,Calculated 285 (280-300); Sodium 138 mEq/L (136-145); eGFR For African Americans > 60 (> 60); eGFR For Non-African Americans > 60 (> 60)
[2019-03-22] MEDS ORDERED: Ketorolac 15 MG/ML VIAL IVP PRN (05:07)
[2019-03-22] MEDS ORDERED: Acetaminophen IV 500 MG/50 ML INFUS..BTL IVPB ONE (05:09)
[2019-03-22] MEDS: Pantoprazole 40 MG VIAL IVP SCH ×2 (05:27→18:07)
[2019-03-22] MEDS ORDERED: ALPRAZolam 0.5 MG TABLET PO PRN (07:38)
[2019-03-22] MEDS: 0.9 % Sodium Chloride 1,000 ML IVC SCH (08:19)
[2019-03-22] MEDS: Metoprolol XL (24 HR) Succ 25 MG TAB.ER.24H PO SCH (08:20)
[2019-03-22] MEDS: *HR* Rivaroxaban 10 MG TABLET PO SCH (08:20)
[2019-03-22] MEDS: Acetaminophen 325 MG TABLET PO PRN ×3 (10:50→21:49)
[2019-03-22] MEDS: Bisacodyl 10 MG RECTAL SUPPOSITORY RC SCH (15:10)
[2019-03-23] MEDS: Acetaminophen 325 MG TABLET PO PRN ×3 (02:39→21:29)
[2019-03-23] MEDS: Pantoprazole 40 MG VIAL IVP SCH (05:29)
[2019-03-23 05:40] LABS: Basophils % 0.3 %; Eosinophils % 9.1 %; Hematocrit 33.4 % (35.3-44.9); Hemoglobin 11.3 g/dL (11.5-15.4); Immature Granulocytes % 0.2 % (0-4); Lymphocytes % 24.4 %; Mean Corpuscular HGB Conc 33.8 g/dL (31.6-35.5); Mean Corpuscular Hemoglobin 29.3 pg (28.0-33.3); Mean Corpuscular Volume 86.5 fL (83.0-100.0); Mean Platelet Volume 10.6 fL (9.4-12.4); Monocytes % 7.8 %; Platelet Count 239 K/mcL (140-400); Red Blood Count 3.86 M/mcL (3.82-4.97); Red Cell Distribution Width 12.4 % (11.5-14.5); Segmented Neutrophils % 58.2 %; White Blood Count 8.7 K/mcL (4.3-11.1)
[2019-03-23 05:41] LABS: Eosinophils # 0.8 K/mcL (0.0-0.6); Lymphocytes # 2.1 K/mcL (0.6-4.6); Monocytes # 0.7 K/mcL (0.0-1.3); Neutrophils # 5.1 K/mcL (1.6-8.9)
[2019-03-23 05:55] LABS: BUN/Creatinine Ratio 16 (6-26); Blood Urea Nitrogen 6 mg/dL (8-23); Calcium 8.9 mg/dL (8.6-10.3); Carbon Dioxide 29 mEq/L (23-29); Chloride 103 mEq/L (98-107); Glucose 118 mg/dL (70-105); Osmolality,Calculated 287 (280-300); Potassium 2.9 mEq/L (3.5-5.1); Sodium 139 mEq/L (136-145); eGFR For African Americans > 60 (> 60); eGFR For Non-African Americans > 60 (> 60)
[2019-03-23] MEDS: Potassium Chloride Elixir 20 MEQ/15 ML UDC PO SCH ×2 (09:27→19:58)
[2019-03-23] MEDS: *HR* Rivaroxaban 10 MG TABLET PO SCH (09:27)
[2019-03-23] MEDS: Metoprolol XL (24 HR) Succ 25 MG TAB.ER.24H PO SCH (09:27)
[2019-03-23] MEDS: Bisacodyl 10 MG RECTAL SUPPOSITORY RC SCH (09:27)
[2019-03-24 06:24] LABS: Hemoglobin 11.5 g/dL (11.5-15.4)
[2019-03-24 06:47] LABS: BUN/Creatinine Ratio 21 (6-26); Blood Urea Nitrogen 10 mg/dL (8-23); Calcium 8.7 mg/dL (8.6-10.3); Carbon Dioxide 29 mEq/L (23-29); Chloride 103 mEq/L (98-107); Glucose 98 mg/dL (70-105); Magnesium 1.7 mg/dL (1.6-2.6); Osmolality,Calculated 299 (280-300); Potassium 3.7 mEq/L (3.5-5.1); Sodium 145 mEq/L (136-145); eGFR For African Americans > 60 (> 60); eGFR For Non-African Americans > 60 (> 60)
[2019-03-24] MEDS: *HR* Rivaroxaban 10 MG TABLET PO SCH (07:54)
[2019-03-24] MEDS: Metoprolol XL (24 HR) Succ 25 MG TAB.ER.24H PO SCH (07:54)
[2019-03-24] MEDS: Bisacodyl 10 MG RECTAL SUPPOSITORY RC SCH (07:55)
[2019-03-24] MEDS: Acetaminophen 325 MG TABLET PO PRN (08:00)
[2019-03-24 09:57] VITALS: BP 133/77
== END 2019-03-24 11:53 | DRG 389 ==
LOC: 3ANU 13:36 → EMEROOARM 13:36 → SUATTDRO 17:31 → 3ANU 18:18
PROVIDERS: ADMIT Internal Medicine; ATTEND Internal Medicine